=== PATIENT | male | born 1985 | race Caucasian/White ===

== ENCOUNTER 2023-01-11 18:08 | Emergency (ER) | payer SELFPAY ==
[2023-01-11] VITALS (7 sets, daily range): BP systolic 125; BP diastolic 80; PULSE 68–90; RESP 16; TEMP 36.9; O2SAT 96–100; BMI 21.2
--- NOTE | 2023-01-11 18:55 | DI.CT.S_ITS ---
PROCEDURE: CT UE RT W CON INDICATIONS: Trauma TECHNIQUE: After the administration of intravenous contrast, 3 mm axial sections acquired of the right upper extremity, with coronal and sagittal reformats. COMPARISON: None. FINDINGS: Image quality: There is beam hardening artifact limiting evaluation. Bones: No fractures or dislocation. No suspicious osseous lesions. Soft tissues: There is subcutaneous edema with a soft tissue laceration anteromedially within the proximal right upper extremity. No discrete soft tissue hematoma collections. The visualized musculature appears preserved without intramuscular collections. Visualized arterial structures demonstrate no definite evidence of acute arterial injury. No discrete pseudoaneurysms. IMPRESSION: 1. No fracture or dislocation. 2. Soft tissue laceration within the anteromedial proximal right upper extremity with associated subcutaneous edema. No discrete hematoma collection. Dictated by: Shon Masters M.D. on 01/11/2023 at 20:15 Approved by: Shon Masters M.D. on 01/11/2023 at 20:20
--- NOTE | 2023-01-11 19:07 | ED.TRAUMA ---
HPI - Trauma <Cass Bateman PA-C - Last Filed: 01/11/23 20:44> General Chief Complaint: Trauma Stated Complaint: caught in machinery/rt armpit down to thumb Time Seen by Provider: 01/11/23 18:15 History of Present Illness HPI narrative: 37-year-old male with no reported past medical history presents to the ED status post a upper extremity injury sustained at work earlier today. 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 Patient also states that his right thumb hit the wheel. Patient denies numbness, tingling, weakness. Patient's tetanus is unknown. Patient endorses full range of motion. Patient has some abrasions in medial upper arm and upper chest just around the armpit. Related Data Allergies Allergy/AdvReac Type Severity Reaction Status Date / Time INGREDIENT: NDA - NO KNOWN Allergy Unknown Uncoded 12/21/17 13:02 DRUG ALLERGIES Review of Systems <Cass Bateman PA-C - Last Filed: 01/11/23 20:44> Review of Systems ROS Unobtainable: All systems reviewed & are unremarkable except as noted in HPI and below Constitutional Constitutional: Denies chills, Denies fatigue, Denies fever(s), Denies frequent falls, Denies lethargy and Denies weakness Eyes Eyes: Denies change in vision, Denies eye discharge, Denies irritation and Denies loss of vision ENT Ears, Nose, Mouth, and Throat: Denies change in voice, Denies dizziness, Denies neck pain, Denies sore throat and Denies throat swelling Cardiovascular Cardiovascular: Denies chest pain, Denies irregular heart rhythm, Denies lightheadedness, Denies palpitations, Denies dyspnea, Denies dyspnea on exertion and Denies orthopnea Respiratory Respiratory: Denies cough, Denies dyspnea, Denies dyspnea on exertion and Denies wheezing Gastrointestinal Gastrointestinal: Denies abdominal pain, Denies change in bowel habits, Denies diarrhea, Denies nausea and Denies vomiting Genitourinary Genitourinary: Denies hematuria, Denies flank pain, Denies urinary incontinence and Denies urinary urgency Musculoskeletal Musculoskeletal: Denies back pain, Denies muscle weakness, Denies neck pain, Denies numbness and Denies tingling Comments: Right upper arm abrasions, pain. Right thumb pain Integumentary/Breasts Skin/Breast: Denies pruritus, Denies erythema, Denies rash and Denies wounds Neurologic Neurologic: Denies behavioral changes, Denies confusion, Denies dizziness, Denies frequent falls, Denies loss of vision, Denies numbness, Denies tingling and Denies weakness Psychiatric Psychiatric: Denies anxiety, Denies behavioral changes, Denies confusion, Denies depression, Denies homicidal ideation and Denies suicidal ideation Endocrine Endocrine: Denies fatigue, Denies flushing and Denies palpitations Hematologic/Lymphatic Hematologic/Lymphatic: Denies easy bruising Allergic/Immunologic Allergic/Immunologic: Denies urticaria, Denies throat swelling and Denies wheezing Patient History <Cass Bateman PA-C - Last Filed: 01/11/23 20:44> Social History Smoking Status: Never smoker Smoking Status: Never smoker Exam <Cass Bateman PA-C - Last Filed: 01/11/23 20:44> Narrative Exam Narrative: Const General:?cooperative, healthy appearing and comfortable [facility] Head:?normal to inspection Ears:?hearing grossly normal bilaterally Nose:?external nose normal Face and sinus:?normal facial exam and sinuses nontender Mouth:?oral mucosae normal Throat:?posterior oropharynx normal Eyes General:?appearance normal, both eyes and all related structures Neck Neck:?normal visual inspection and no lymphadenopathy noted Resp Effort & Inspection:?normal respiratory effort Auscultation:?clear to auscultation bilaterally Cardio Rate:?regular rate Rhythm:?regular rhythm Musculoskeletal There is full range of motion. Strength and sensation is intact. Cap refill less than 2 seconds. Compartments are soft. Left thumb appears somewhat swollen. There are abrasions to the medial upper arm and chest bordering the armpit. No hematomas, swelling or pulsating mass noted on exam. There is some mild tenderness to palpation. Neuro General:?patient alert, patient awake and patient oriented x3 Initial Vital Signs Initial Vital Signs: Vital Signs Pulse Rate 89 01/11/23 18:14 Blood Pressure 125/80 01/11/23 18:14 Pulse Oximetry 98 01/11/23 18:14 <Alexander Pardo DO - Last Filed: 01/12/23 05:46> Initial Vital Signs Initial Vital Signs: Vital Signs Pulse Rate 89 01/11/23 18:14 Blood Pressure 125/80 01/11/23 18:14 Pulse Oximetry 98 01/11/23 18:14 Course <Cass Bateman PA-C - Last Filed: 01/11/23 20:44> Orders Ordered: Discontinued Medications Acetaminophen (Acetaminophen 325 Mg Tablet) 975 mg PO NOW ONE Stop: 01/11/23 18:56 Last Admin: 01/11/23 20:49 Dose: Not Given Documented By: ANIBAL Bacitracin (Bacitracin Oint 0.9 Gm Pckt) 4 applic TOP NOW ONE Stop: 01/11/23 20:47 Last Admin: 01/11/23 20:48 Dose: 4 applic Documented By: ANIBAL Diphtheria/Tetanus/Acell Pertussis (Tet,Diph,Pertuss(Acell),Vac/Pf 0.5 Ml Syringe) 0.5 ml IM .ONCE ONE Stop: 01/11/23 19:49 Last Admin: 01/11/23 20:25 Dose: 0.5 ml Documented By: ANIBAL Vital Signs Vital signs: Vital Signs - 8 hr 01/11/23 18:16 Temperature 98.4 F Pulse Rate 90 Respiratory Rate 16 Blood Pressure 125/80 Pulse Oximetry 97 Oxygen Delivery Method Room Air <Alexander Pardo DO - Last Filed: 01/12/23 05:46> Orders Ordered: Discontinued Medications Acetaminophen (Acetaminophen 325 Mg Tablet) 975 mg PO NOW ONE Stop: 01/11/23 18:56 Last Admin: 01/11/23 20:49 Dose: Not Given Documented By: ANIBAL Bacitracin (Bacitracin Oint 0.9 Gm Pckt) 4 applic TOP NOW ONE Stop: 01/11/23 20:47 Last Admin: 01/11/23 20:48 Dose: 4 applic Documented By: ANIBAL Diphtheria/Tetanus/Acell Pertussis (Tet,Diph,Pertuss(Acell),Vac/Pf 0.5 Ml Syringe) 0.5 ml IM .ONCE ONE Stop: 01/11/23 19:49 Last Admin: 01/11/23 20:25 Dose: 0.5 ml Documented By: ANIBAL Vital Signs Vital signs: Vital Signs - 8 hr 01/11/23 18:16 Temperature 98.4 F Pulse Rate 90 Respiratory Rate 16 Blood Pressure 125/80 Pulse Oximetry 97 Oxygen Delivery Method Room Air MDM - Trauma <Cass Bateman PA-C - Last Filed: 01/11/23 20:44> Lab Data 01/11/23 19:08 01/11/23 19:08 Labs: Lab Results 01/11/23 01/11/23 Range/Units 19:08 19:08 WBC 5.5 (4.5-11.0) X10^3/uL RBC 4.57 (4.5-5.9) X10^6/uL Hgb 13.3 L (13.5-17.5) g/dL Hct 38.4 L (41-53) % MCV 84.0 (80-100) fL MCH 29.2 (26-34) PG MCHC 34.8 (30-36) % RDW 13.8 (11.6-14.8) % Plt Count 238 (150-400) X10^3/uL Neut % (Auto) 72.1 (50-75) % Lymph % (Auto) 15.5 L (25-40) % Archer % (Auto) 9.8 (3-14) % Eos % (Auto) 1.8 L (2-4) % Baso % (Auto) 0.8 (0-2) % Neut # (Auto) 3900 (7393-1002) /uL Lymph # (Auto) 800 L (8006-7779) /uL Archer # (Auto) 500 (0-900) /uL Eos # (Auto) 100 (0-450) /uL Baso # (Auto) 0 (0-100) /uL Sodium 138 (137-145) mmol/L Potassium 3.5 (3.4-5.1) mmol/L Chloride 103 (98-107) mmol/L Carbon Dioxide 26 (22-32) mmol/L BUN 18 (9-20) mg/dL Creatinine 0.74 (0.66-1.25) mg/dL Estimated GFR > 60 (>60) mL/min BUN/Creatinine Ratio 24.3 H (6-22) Glucose 89 (70-100) mg/dL Calcium 8.2 L (8.4-10.2) mg/dL Total Bilirubin 0.3 (0.2-1.3) mg/dL AST 33 (17-59) IU/L ALT 34 (<50) IU/L Alkaline Phosphatase 55 (38-126) U/L Total Protein 7.5 (6.3-8.2) g/dL Albumin 4.1 (3.5-5.0) g/dL Globulin 3.4 (1.7-4.1) g/dL Albumin/Globulin Ratio 1.2 (1.0-2.8) MDM Narrative Medical decision making narrative: 37-year-old male with no reported past medical history presents to the ED status post a upper extremity injury sustained at work earlier today. Concern for fracture/dislocation versus soft tissue injury versus vascular injury versus abrasion versus other. Will obtain CT right upper extremity. Will give Tylenol for pain, update TDAP. Will reassess. CT shows a subcutaneous soft tissue laceration, no hematomas or signs of internal bleeding. There are no fractures or dislocations. Reexamined the patient, physical exam is reassuring for soft compartments, full range of motion, strength and sensation intact. Discussed findings with patient, ED return precautions discussed. Patient verbalized understanding, and will return to the ED if he experiences any numbness, tingling, weakness or signs and symptoms of compartment syndrome. Medical records reviewed: Yes <Alexander Pardo DO - Last Filed: 01/12/23 05:46> Lab Data Labs: Lab Results 01/11/23 01/11/23 Range/Units 19:08 19:08 WBC 5.5 (4.5-11.0) X10^3/uL RBC 4.57 (4.5-5.9) X10^6/uL Hgb 13.3 L (13.5-17.5) g/dL Hct 38.4 L (41-53) % MCV 84.0 (80-100) fL MCH 29.2 (26-34) PG MCHC 34.8 (30-36) % RDW 13.8 (11.6-14.8) % Plt Count 238 (150-400) X10^3/uL Neut % (Auto) 72.1 (50-75) % Lymph % (Auto) 15.5 L (25-40) % Archer % (Auto) 9.8 (3-14) % Eos % (Auto) 1.8 L (2-4) % Baso % (Auto) 0.8 (0-2) % Neut # (Auto) 3900 (7266-4003) /uL Lymph # (Auto) 800 L (5828-2736) /uL Archer # (Auto) 500 (0-900) /uL Eos # (Auto) 100 (0-450) /uL Baso # (Auto) 0 (0-100) /uL Sodium 138 (137-145) mmol/L Potassium 3.5 (3.4-5.1) mmol/L Chloride 103 (98-107) mmol/L Carbon Dioxide 26 (22-32) mmol/L BUN 18 (9-20) mg/dL Creatinine 0.74 (0.66-1.25) mg/dL Estimated GFR > 60 (>60) mL/min BUN/Creatinine Ratio 24.3 H (6-22) Glucose 89 (70-100) mg/dL Calcium 8.2 L (8.4-10.2) mg/dL Total Bilirubin 0.3 (0.2-1.3) mg/dL AST 33 (17-59) IU/L ALT 34 (<50) IU/L Alkaline Phosphatase 55 (38-126) U/L Total Protein 7.5 (6.3-8.2) g/dL Albumin 4.1 (3.5-5.0) g/dL Globulin 3.4 (1.7-4.1) g/dL Albumin/Globulin Ratio 1.2 (1.0-2.8) Discharge Plan Departure Patient Disposition: Home Clinical Impression: Pain of upper arm after trauma Instructions: DI for Trauma Activity Restrictions/Additional Instructions: You were evaluated in the ED today for a right arm injury sustained earlier today. Your physical exam is reassuring. Your CT scan shows a small laceration in the upper arm area under the skin, but there is no bleeding or blood clots in there. There were no fractures or dislocations. Please monitor your symptoms and return to the ED if you note worsening pain, swelling, lump, tense skin in the arm, numbness, tingling, weakness. Please follow-up with your primary care provider as soon as possible. You may take Tylenol or ibuprofen for your symptoms. Referrals: Roel Ken MD [Primary Care Provider] - Stand Alone Forms: Patient Portal/API <Alexander Colwich, DO - Last Filed: 01/12/23 05:46> Cosign ED Attending Luceroature Attestation: I was immediately available in the department for consultation. Documentation has been reviewed. I agree with assessment and plan.
[2023-01-11 19:19] LABS: Add Manual Diff / Slide Review NO; Basophils Absolute Auto 0 /uL (0-100); Basophils Percent Auto 0.8 % (0-2); Eosinophils Absolute Auto 100 /uL (0-450); Eosinophils Percent Auto 1.8 % (2-4); Hematocrit 38.4 % (41-53); Hemoglobin 13.3 g/dL (13.5-17.5); Lymphocytes Absolute Auto 800 /uL (1100-4500); Lymphocytes Percent Auto 15.5 % (25-40); Mean Corpuscular HGB Conc 34.8 % (30-36); Mean Corpuscular Hemoglobin 29.2 PG (26-34); Monocytes Absolute Auto 500 /uL (0-900); Monocytes Percent Auto 9.8 % (3-14); Neutrophils Absolute Auto 3900 /uL (1500-7000); Neutrophils Percent Auto 72.1 % (50-75); Platelet Count 238 X10^3/uL (150-400); Red Blood Cell Count 4.57 X10^6/uL (4.5-5.9); Red Cell Distribution Width 13.8 % (11.6-14.8); White Blood Cell Count 5.5 X10^3/uL (4.5-11.0)
[2023-01-11 19:35] LABS: Alanine Aminotransferase 34 IU/L (<50); Albumin 4.1 g/dL (3.5-5.0); Albumin Globulin Ratio 1.2 (1.0-2.8); Alkaline Phosphatase 55 U/L (38-126); Aspartate Aminotransferase 33 IU/L (17-59); BUN Creatinine Ratio 24.3 (6-22); Bilirubin Total 0.3 mg/dL (0.2-1.3); Blood Urea Nitrogen 18 mg/dL (9-20); Calcium 8.2 mg/dL (8.4-10.2); Carbon Dioxide 26 mmol/L (22-32); Chloride 103 mmol/L (98-107); Estimated Glomerular Filt Rate > 60 mL/min (>60); Globulin 3.4 g/dL (1.7-4.1); Glucose 89 mg/dL (70-100); HEMOLYSIS < 15 (0-50); Potassium 3.5 mmol/L (3.4-5.1); Sodium 138 mmol/L (137-145); Total Protein 7.5 g/dL (6.3-8.2)
[2023-01-11] MEDS: TET,DIPH,PERTUSS(ACELL),VAC/PF 0.5 ML SYRINGE IM (20:25)
[2023-01-11] MEDS: BACITRACIN OINT 0.9 GM PCKT 4 APPLIC TOP (20:48)
== END 2023-01-11 20:51 | disposition home or self-care (01) ==
PROVIDERS: Emergency Provider Student in an Organized Health Care Education/Training Program; Family Provider Family Medicine; PCP Family Medicine
DX: S49.91XA Unspecified injury of right shoulder and upper arm, initial encounter (principal); M79.644 Pain in right finger(s); W22.8XXA Striking against or struck by other objects, initial encounter; Y99.0 Civilian activity done for income or pay; Z23 Encounter for immunization
CPT/HCPCS: 36415; 73201; 80053; 85025; 90471; 99284; 90715; Q9967